=== PATIENT | female | born 1940 | race Caucasian/White ===

== ENCOUNTER 2017-10-11 17:26 | Emergency (ER) | payer OTHER ==
--- NOTE | 2017-10-11 17:50 | CPEKG ---
Heart Rate: 65 RR Interval: 923 P-R Interval: 200 QRSD Interval: 86 QT Interval: 440 QTC Interval: 458 P Jackson: 18 QRS Jackson: -41 T Wave Jackson: 42 EKG Severity - ABNORMAL ECG - EKG Impression: SINUS RHYTHM EKG Impression: ATRIAL PREMATURE COMPLEX EKG Impression: LEFT ANTERIOR FASCICULAR BLOCK Electronically Signed By: Ramin Vital 11-Oct-2017 18:49:24
[2017-10-11] MEDS ORDERED: HYOSCYAMINE SULFATE 0.125 MG TAB PO ONE (18:03)
[2017-10-11] MEDS ORDERED: LIDOCAINE 2% VISCOUS 15 ML UDCUP PO ONE (18:03)
[2017-10-11] MEDS ORDERED: MAG HYDROX/AL HYDROX/SIMETH 30 ML UDCUP PO ONE (18:03)
--- NOTE | 2017-10-11 18:06 | EDPHY ---
H & P Stated Complaint: Epigastric pain that is subsiding after taking B12 and drinking a coke Time Seen by Provider: 10/11/17 17:45 HPI/ROS: CHIEF COMPLAINT: Resolved severe epigastric pain HISTORY OF PRESENT ILLNESS: The patient presents to the ED after she experienced a episode of severe epigastric pain. The patient had just swallowed a B12 pill with a soda. She developed a sharp epigastric pain and a sensation of pressure and bloating. The patient's symptoms have essentially resolved. She has no known history of coronary artery disease. She does have a history of hypertension but is currently not on medications. The patient denies any history of exertional chest pain or shortness of breath. She denies asymmetric calf pain or swelling. The patient had been on diuretics which were discontinued by her primary care provider. The patient denies prior abdominal surgery. REVIEW OF SYSTEMS: A comprehensive 10 point review of systems is otherwise negative aside from elements mentioned in the history of present illness. Source: Patient Exam Limitations: No limitations - Personal History Current Tetanus Diphtheria and Acellular Pertussis (TDAP): Yes - Medical/Surgical History Other PMH: healthy - Social History Smoking Status: Never smoked - Physical Exam Exam: General Appearance: Alert, no distress Eyes: Pupils equal and round no pallor or injection ENT, Mouth: Mucous membranes moist Respiratory: There are no retractions, lungs are clear to auscultation Cardiovascular: Regular rate and rhythm Gastrointestinal: Minimal epigastric tenderness to palpation Neurological: A&O, normal motor function, normal sensory exam, normal cranial nerves Skin: Warm and dry, no rashes Musculoskeletal: Neck is supple nontender Extremities: symmetrical, full range of motion Psychiatric: Patient is oriented X 3, there is no agitation Constitutional: Initial Vital Signs Temperature (C) 36.6 C 10/11/17 17:27 Heart Rate 64 10/11/17 17:27 Respiratory Rate 18 10/11/17 17:27 Blood Pressure 180/96 H 10/11/17 17:27 O2 Sat (%) 94 10/11/17 17:27 O2 Delivery Mode Room Air Allergies/Adverse Reactions: No Known Allergies Allergy (Unverified 10/11/17 17:34) Home Medications: Medication Instructions Recorded NK [No Known Home Meds] 10/11/17 Medical Decision Making - Diagnostics EKG Interpretation: EKG: Complete interpretation has been separately recorded in the [employer] archive. Summary impression: Sinus rhythm, premature atrial contraction, no ST segment elevation or depression Imaging Results: Imaging Impressions Abdomen Ultrasound 10/11/17 19:42 Impression: Cholelithiasis with no secondary findings to suggest acute cholecystitis. Results called and discussed with Ramin Vital the on 10/11/2017 at 20:46 ED Course/Re-evaluation: The patient presents the ED for evaluation of resolved epigastric pain. The patient reports her symptoms began after taking a B12 vitamin and having soda. She had essentially resolved symptoms upon arrival. The patient was noted to have minimal tenderness on exam. Her EKG demonstrates no evidence of ischemia. The patient was given a GI cocktail which resulted in improvement of her symptoms. She was noted to have a slight elevation of her AST and ALT. The patient was taken for right upper quadrant ultrasound which demonstrated gallstones without cholecystitis. The patient underwent serial examinations in the ED by myself over a 2 hour period. She remains with a soft nontender abdomen. At this point time I do feel the patient can be discharged home she has been informed of the diagnosis of gallstones and the need to return to the ED immediately for any fever, intractable right upper quadrant pain, vomiting or other concerns. The patient is given the contact number of our on-call general surgeon for evaluation of her cholelithiasis. The patient's troponin, EKG and additional laboratory studies are normal. My suspicion is that her symptoms are secondary to a GI source and not cardiac. Differential Diagnosis: Differential diagnosis considered includes cholecystitis, cholelithiasis, peptic ulcer disease, esophageal foreign body, myocardial infarction - Data Points Laboratory Results: Laboratory Results 10/11/17 18:00 10/11/17 18:00 10/11/17 10/11/17 18:00 18:00 WBC 4.46 10^3/uL 10^3/uL (3.80-9.50) RBC 4.11 10^6/uL L 10^6/uL (4.18-5.33) Hgb 13.3 g/dL g/dL (12.6-16.3) Hct 40.2 % % (38.0-47.0) MCV 97.8 fL fL (81.5-99.8) MCH 32.4 pg pg (27.9-34.1) MCHC 33.1 g/dL g/dL (32.4-36.7) RDW 13.2 % % (11.5-15.2) Plt Count 234 10^3/uL 10^3/uL (150-400) MPV 9.9 fL fL (8.7-11.7) Neut % (Auto) 60.6 % % (39.3-74.2) Lymph % (Auto) 28.7 % % (15.0-45.0) Evans % (Auto) 7.2 % % (4.5-13.0) Eos % (Auto) 2.9 % % (0.6-7.6) Baso % (Auto) 0.2 % L % (0.3-1.7) Nucleat RBC Rel Count 0.0 % % (0.0-0.2) Absolute Neuts (auto) 2.70 10^3/uL 10^3/uL (1.70-6.50) Absolute Lymphs (auto) 1.28 10^3/uL 10^3/uL (1.00-3.00) Absolute Monos (auto) 0.32 10^3/uL 10^3/uL (0.30-0.80) Absolute Eos (auto) 0.13 10^3/uL 10^3/uL (0.03-0.40) Absolute Basos (auto) 0.01 10^3/uL L 10^3/uL (0.02-0.10) Absolute Nucleated RBC 0.00 10^3/uL 10^3/uL (0-0.01) Immature Gran % 0.4 % % (0.0-1.1) Immature Gran # 0.02 10^3/uL 10^3/uL (0.00-0.10) Sodium 141 mEq/L mEq/L (134-144) Potassium 3.6 mEq/L mEq/L (3.5-5.2) Chloride 102 mEq/L mEq/L (97-110) Carbon Dioxide 28 mEq/l mEq/l (22-31) Anion Gap 11 mEq/L mEq/L (8-16) BUN 20 mg/dL mg/dL (7-23) Creatinine 0.8 mg/dL mg/dL (0.6-1.0) Estimated GFR > 60 Glucose 84 mg/dL mg/dL (70-100) Calcium 9.2 mg/dL mg/dL (8.5-10.4) Total Bilirubin 0.6 mg/dL mg/dL (0.1-1.4) Conjugated Bilirubin 0.3 mg/dL mg/dL (0.0-0.5) Unconjugated Bilirubin 0.3 mg/dL mg/dL (0.0-1.1) AST 117 IU/L H IU/L (14-46) ALT 57 IU/L H IU/L (9-52) Alkaline Phosphatase 86 IU/L IU/L (38-126) Troponin I 0.013 ng/mL ng/mL (0.000-0.034) Total Protein 6.3 g/dL g/dL (6.3-8.2) Albumin 4.0 g/dL g/dL (3.5-5.0) Lipase 57 IU/L IU/L (23-300) Medications Given: Discontinued Medications Al Hydroxide/Mg Hydroxide (Maalox Susp) 30 ml PO ONCE ONE Stop: 10/11/17 18:04 Last Admin: 10/11/17 18:17 Dose: 30 ml Hyoscyamine Sulfate (Levsin, Hyomax-Sl) 0.25 mg PO ONCE ONE Stop: 10/11/17 18:04 Last Admin: 10/11/17 18:17 Dose: 0.25 mg Lidocaine (Lidocaine 2% Viscous) 15 ml PO ONCE ONE Stop: 10/11/17 18:04 Last Admin: 10/11/17 18:17 Dose: 15 ml Departure - Departure Disposition: Home, Routine, Self-Care Clinical Impression: Epigastric pain, Cholelithiasis Condition: Good Instructions: Gallstones (ED) Additional Instructions: 1. Your EKG and cardiac testing is normal. 2. Your ultrasound does demonstrate gallstones which may have caused your symptoms earlier today. Please return to the ED immediately for uncontrolled right upper quadrant pain, fever or vomiting as this may be the sign of an impacted gallstone and gallbladder infection. You have given the number of our on-call general surgeon if you continue to have ongoing mild intermittent abdominal pain. Removal of your gallbladder may be indicated. 3. Return to the ED for any recurrent chest pain, difficulty breathing or other concerns. Referrals: CORBY NOLAND [Primary Care Provider] - As per Instructions Gil Arroyo MD [Medical Doctor] - As per Instructions
[2017-10-11 18:21] LABS: % IMMATURE GRANULYOCYTES 0.4 % (0.0-1.1); ABSOLUTE IMMATURE GRANULOCYTES 0.02 10^3/uL (0.00-0.10); ADD DIFF? NO; ADD MORPH? NO; ADD SCAN? NO; ATYPICAL LYMPHOCYTE FLAG 0 (0-99); FRAGMENT RBC FLAG 0 (0-99); HEMATOCRIT 40.2 % (38.0-47.0); HEMOGLOBIN 13.3 g/dL (12.6-16.3); LEFT SHIFT FLG 0 (0-99); LIPEMIA HEMOLYSIS FLAG 80 (0-99); MEAN CELL HEMOGLOBIN 32.4 pg (27.9-34.1); MEAN CELL HEMOGLOBIN CONCENTR. 33.1 g/dL (32.4-36.7); MEAN CELL VOLUME 97.8 fL (81.5-99.8); MEAN PLATELET VOLUME 9.9 fL (8.7-11.7); PLATELET CLUMPS FLAG 40 (0-99); PLATELET COUNT 234 10^3/uL (150-400); RED BLOOD CELL COUNT 4.11 10^6/uL (4.18-5.33); RED CELL DISTRIBUTION WIDTH 13.2 % (11.5-15.2)
[2017-10-11 18:31] LABS: ALANINE AMINOTRANSFERASE 57 IU/L (9-52); ALKALINE PHOSPHATASE 86 IU/L (38-126); ANION GAP 11 mEq/L (8-16); ASPARTATE AMINOTRANSFERASE 117 IU/L (14-46); BILIRUBIN,TOTAL 0.6 mg/dL (0.1-1.4); BILIRUBIN-CONJUGATED 0.3 mg/dL (0.0-0.5); BILIRUBIN-UNCONJUGATED 0.3 mg/dL (0.0-1.1); CALCIUM 9.2 mg/dL (8.5-10.4); CARBON DIOXIDE 28 mEq/l (22-31); CHLORIDE 102 mEq/L (97-110); CREATININE 0.8 mg/dL (0.6-1.0); GLOMERULAR FILTRATION RATE > 60; GLUCOSE 84 mg/dL (70-100); POTASSIUM 3.6 mEq/L (3.5-5.2); SODIUM 141 mEq/L (134-144); TOTAL PROTEIN 6.3 g/dL (6.3-8.2)
[2017-10-11 18:42] LABS: TROPONIN I 0.013 ng/mL (0.000-0.034)
[2017-10-11 21:34] VITALS: BP 156/83; PULSE 70; RESP 18; TEMP 98.4; O2SAT 92
== END 2017-10-11 21:33 | disposition home or self-care (01) ==
DX: K80.20 Calculus of gallbladder without cholecystitis without obstruction (principal); I10 Essential (primary) hypertension